=== PATIENT | female | born 1975 | race Caucasian/White ===

== ENCOUNTER 2019-11-22 14:09 | Outpatient (CLI) | payer OTHER ==
[~2019-11-22 14:09] MED LIST: OMNIPAQUE 350 MG/ML, 100ML BOTTLE ONE
== END 2019-11-22 23:59 | disposition home or self-care (01) ==
LOC: RAD 14:09
PROVIDERS: ATTEND Obstetrics & Gynecology
DX: N83.202 Unspecified ovarian cyst, left side (principal)
CPT/HCPCS: 74177; Q9967

== ENCOUNTER 2019-12-09 15:53 | Emergency (ER) | payer OTHER ==
[~2019-12-09] VITALS: Ht 175.3 cm; Wt 65.0 kg
[2019-12-09 16:09] VITALS: BP 135/52
[2019-12-09] MEDS ORDERED: FLUO40CA2 PO (16:24)
[2019-12-09] MEDS ORDERED: DEXAMETHASONE 4 MG TABLET PO ONE (17:00)
[2019-12-09] MEDS ORDERED: DEXAMETHASONE 4 MG TABLET ONE (17:04)
--- NOTE | 2019-12-09 17:07 | NUR ---
MEDS ADMIN PER NOV.
--- NOTE | 2019-12-09 17:12 | NUR ---
XRAY AT BEDSIDE.
--- NOTE | 2019-12-09 17:36 | NUR ---
ALL RESULTS ARE BACK AT THIS TIME. CHART UP FOR RECHECK.
== END 2019-12-09 17:51 | disposition home or self-care (01) ==
LOC: ED 16:21
DX: J20.8 Acute bronchitis due to other specified organisms (principal); B34.9 Viral infection, unspecified; R94.31 Abnormal electrocardiogram [ECG] [EKG]
CPT/HCPCS: 71045; 93005; 99283